=== PATIENT | male | born 1955 | race Caucasian/White ===

== ENCOUNTER 2017-05-22 17:37 | Inpatient (IN) | payer BC ==
[~2017-05-22] VITALS: Ht 172.7 cm; Wt 105.9 kg
[~2017-05-22 17:37] MED LIST: ASPI-630 PO; LISI1SOL PO; VALS1TAB8 PO
--- NOTE | 2017-05-22 17:40 | ED.ADGEN ---
Past History Past Medical History: Hypertension, Other Past Surgical History: Other Smoking: Non-smoker Drug Use: None Adult General Chief Complaint Chief Complaint '" I ve been having some chest pain off and on... more since Sunday... but it was bothering me on the way home to night... it been there all day... the discomfort is a 5/10. 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 Some subjective component of chest wall pain on palpation of left upper chest. No history of trauma. Has had a previous stress test with no reported gross abnormalities. Patient does have a history of hypertension, gout, and Ig A nephropathy. Patient does not smoke anymore. Patient does not think he has sleep apnea, patient denies any trauma. Patient is compliant with his hypertension . Patient follows with primary care Dr. Reza and with Dr. Mercado for nephrology. No history of DVT, significant cough or upper respiratory complaints. Family history -father PA and multiple CABG at his age. Father was also a diabetic. . Pt. has been compliant with his HTN meds and daily ASA meds today. Review of Systems Review of Systems Constitutional: Denies fever or chills [] Eyes: Denies change in visual acuity, redness, or eye pain [] HENT: Denies nasal congestion or sore throat [] Respiratory: Denies cough or shortness of breath [] Cardiovascular: No additional information not addressed in HPI [] GI: Denies abdominal pain, nausea, vomiting, bloody stools or diarrhea [] : Denies dysuria or hematuria [] Musculoskeletal: Denies back pain or joint pain [] Integument: Denies rash or skin lesions [] Neurologic: Denies headache, focal weakness or sensory changes [] Endocrine: Denies polyuria or polydipsia [] All other systems were reviewed and found to be within normal limits, except as documented in this note. Family History Family History Noncontributory Current Medications Current Medications Current Medications Medications (Trade) Dose Ordered Sig/[place] Start Time Stop Time Status Last Admin Dose Admin Enoxaparin Sodium (Lovenox 100mg Syringe) 100 mg BID 05/22/17 21:00 Magnesium Sulfate 50 ml @ 25 mls/hr 1X ONCE 05/22/17 20:00 05/22/17 21:59 DC 05/22/17 20:23 25 MLS/HR Morphine Sulfate (Morphine 4mg Syringe) 2 mg PRN Q2HR PRN 05/22/17 20:15 05/23/17 20:14 Multivitamins/ Minerals 10 ml/ Folic Acid 1 mg/ Thiamine HCl 100 mg/Lactated Ringer's 1,011.1 ml @ 125 mls/ hr Q24H 05/22/17 21:00 05/22/17 22:46 125 MLS/HR Nitroglycerin (Nitro-Bid Oint) 1 inch TID 05/22/17 21:00 Ondansetron HCl (Zofran) 4 mg PRN Q4HRS PRN 05/22/17 20:15 05/23/17 20:14 Sodium Chloride 1,000 ml @ 1,000 mls/hr Q1H 05/22/17 17:48 05/22/17 18:47 DC 05/22/17 18:29 1,000 MLS/HR Allergies Allergies Allergies Coded Allergies Type Severity Reaction Last Updated Verified No Known Drug Allergies 06/28/16 No Physical Exam Physical Exam Constitutional: moderate distress, non-toxic appearance. [] HENT: Normocephalic, atraumatic, bilateral external ears normal, oropharynx moist, no oral exudates, nose normal. [] Eyes: PERRLA, EOMI, conjunctiva normal, no discharge. [] Neck: Normal range of motion, no tenderness, supple, no stridor. [] Cardiovascular:Heart rate regular rhythm, no murmur [] Lungs & Thorax: Bilateral breath sounds clear to auscultation [] Abdomen: Bowel sounds normal, soft, no tenderness, no masses, no pulsatile masses. [] Skin: Warm, dry, no erythema, no rash. [] Back: No tenderness, no CVA tenderness. [] Extremities: No tenderness, no cyanosis, no clubbing, ROM intact, no edema. [] No cording appreciated in legs Neurologic: Alert and oriented X 3, normal motor function, normal sensory function, no focal deficits noted. [] Psychologic: Affect anxious, judgement normal, mood normal. [] Current Patient Data Vital Signs Vital Signs Date Time Temp Pulse Resp B/P (MAP) Pulse Ox O2 Delivery O2 Flow Rate FiO2 05/22/17 20:15 98.1 74 16 133/88 (103) 98 05/22/17 19:15 Room Air Lab Results Laboratory Tests Test 05/22/17 18:07 05/22/17 18:36 White Blood Count 8.4 x10^3/uL (4.0-11.0) Red Blood Count 4.51 x10^6/uL (4.30-5.70) Hemoglobin 14.9 g/dL (13.0-17.5) Hematocrit 43.8 % (39.0-53.0) Mean Corpuscular Volume 97 fL (79-100) Mean Corpuscular Hemoglobin 33 pg (25-35) Mean Corpuscular Hemoglobin Concent 34 g/dL (31-37) Red Cell Distribution Width 14.4 % (11.5-14.5) Platelet Count 195 x10^3/uL (140-400) Neutrophils (%) (Auto) 59 % (31-73) Lymphocytes (%) (Auto) 27 % (24-48) Monocytes (%) (Auto) 10 % (0-9) H Eosinophils (%) (Auto) 3 % (0-3) Basophils (%) (Auto) 1 % (0-3) Neutrophils # (Auto) 4.9 x10^3uL (1.8-7.7) Lymphocytes # (Auto) 2.2 x10^3/uL (1.0-4.8) Monocytes # (Auto) 0.8 x10^3/uL (0.0-1.1) Eosinophils # (Auto) 0.3 x10^3/uL (0.0-0.7) Basophils # (Auto) 0.1 x10^3/uL (0.0-0.2) Prothrombin Time 9.8 SEC (9.4-11.4) Prothrombin Time INR 1.0 (0.9-1.1) PTT 25 SEC (23-33) D-Dimer (Barb) 0.44 mg/L (0.00-0.50) Sodium Level 141 mmol/L (136-145) Potassium Level 3.7 mmol/L (3.5-5.1) Chloride Level 104 mmol/L (98-107) Carbon Dioxide Level 27 mmol/L (21-32) Anion Gap 10 (6-14) Blood Urea Nitrogen 24 mg/dL (8-26) Creatinine 1.4 mg/dL (0.7-1.3) H Estimated GFR (Cockcroft-Gault) 51.9 Glucose Level 88 mg/dL (70-99) Uric Acid 5.8 mg/dL (3.5-7.2) Calcium Level 9.2 mg/dL (8.5-10.1) Magnesium Level 1.6 mg/dL (1.8-2.4) L Total Bilirubin 0.4 mg/dL (0.2-1.0) Direct Bilirubin 0.1 mg/dL (0.0-0.2) Aspartate Amino Transferase (AST) 32 U/L (15-37) Alanine Aminotransferase (ALT) 34 U/L (16-63) Alkaline Phosphatase 97 U/L (46-116) Creatine Kinase 93 U/L (39-308) Creatine Kinase MB (Mass) 0.7 ng/mL (0.0-3.6) Creatine Kinase MB Relative Index 0.8 % (0-4) Troponin I Quantitative < 0.017 ng/mL (0-0.055) NC-Mhf-K-Type Natriuretic Peptide 63 pg/mL (0-124) Total Protein 7.3 g/dL (6.4-8.2) Albumin 3.6 g/dL (3.4-5.0) Lipase 203 U/L (73-393) Urine Collection Type Unknown Urine Color Yellow Urine Clarity Clear Urine pH 5.5 Urine Specific [place] 1.025 Urine Protein >100 mg/dl (NEG-TRACE) Urine Glucose (UA) Neg mg/dL (NEG) Urine Ketones (Stick) Neg mg/dL (NEG) Urine Blood Neg (NEG) Urine Nitrite Neg (NEG) Urine Bilirubin Neg (NEG) Urine Urobilinogen Dipstick 0.2 mg/dL (0.2 mg/dL) Urine Leukocyte Esterase Neg (NEG) Urine RBC 0 /HPF (0-2) Urine WBC Rare /HPF (0-4) Urine Squamous Epithelial Cells Occ /LPF Urine Bacteria 0 /HPF (0-FEW) Urine Opiates Screen Neg (NEG) Urine Methadone Screen Neg (NEG) Urine Barbiturates Neg (NEG) Urine Phencyclidine Screen Neg (NEG) Urine Amphetamine/Methamphetamine Neg (NEG) Urine Benzodiazepines Screen Neg (NEG) Urine Cocaine Screen Neg (NEG) Urine Cannabinoids Screen Neg (NEG) Urine Ethyl Alcohol Neg (NEG) EKG EKG My interpretation EKG shows sinus rhythm at 79 bpm. There is some leftward axis and nonspecific anterior septal changes. But no findings acute STEMI of contralateral changes.[] Radiology/Procedures Radiology/Procedures My interpretation chest x-ray shows no acute cardiopulmonary findings. [] Course & Med Decision Making Course & Med Decision Making Pertinent Labs and Imaging studies reviewed. (See chart for details) Discussed presentation, testing and tx. plan with Dr. Mitchell, will admit serial trops. and Cardiology consult. Pt. still have some mild chest discomfort at time of admit. [] Final Impression Final Impression 1. Chest Pain 2. Gout 3. Hypertension[] 4. History of IgA nephropathy 5. Hypomagnesium Problems: Dragon Disclaimer Dragon Disclaimer This electronic medical record was generated, in whole or in part, using a voice recognition dictation system. ELVIRA MAY MD May 22, 2017 17:40
[2017-05-22] MEDS ORDERED: IV NORMAL SALINE 1,000ML 1,000 ML IV SCH (17:48)
[2017-05-22] MEDS ORDERED: NITROGLYCERIN OINT 1 GM PACKET. TP ONE (18:15)
[2017-05-22] MEDS ORDERED: ENOXAPARIN ** NOTE DOSE ** SYRINGE SQ ONE (18:15)
[2017-05-22 18:27] LABS: BASO # 0.1 x10^3/uL (0.0-0.2); BASO % 1 % (0-3); EOS # 0.3 x10^3/uL (0.0-0.7); EOS % 3 % (0-3); HEMATOCRIT 43.8 % (39.0-53.0); HEMOGLOBIN 14.9 g/dL (13.0-17.5); LYMPH # 2.2 x10^3/uL (1.0-4.8); LYMPH % 27 % (24-48); MEAN CORPUSCULAR HEMOGLOBIN 33 pg (25-35); MEAN CORPUSCULAR HGB CONC 34 g/dL (31-37); MEAN CORPUSCULAR VOLUME 97 fL (79-100); MONO # 0.8 x10^3/uL (0.0-1.1); MONO % 10 % (0-9); NEUT # 4.9 x10^3uL (1.8-7.7); NEUT % 59 % (31-73); PLATELET COUNT 195 x10^3/uL (140-400); RED BLOOD COUNT 4.51 x10^6/uL (4.30-5.70); RED CELL DISTRIBUTION WIDTH 14.4 % (11.5-14.5); WHITE BLOOD COUNT 8.4 x10^3/uL (4.0-11.0)
[2017-05-22 18:50] LABS: ALBUMIN 3.6 g/dL (3.4-5.0); CALCIUM 9.2 mg/dL (8.5-10.1); CREATININE 1.4 mg/dL (0.7-1.3); DIRECT BILIRUBIN 0.1 mg/dL (0.0-0.2); GFR 51.9; MAGNESIUM 1.6 mg/dL (1.8-2.4); POTASSIUM 3.7 mmol/L (3.5-5.1); TOTAL BILIRUBIN 0.4 mg/dL (0.2-1.0); TOTAL PROTEIN 7.3 g/dL (6.4-8.2); URIC ACID 5.8 mg/dL (3.5-7.2)
[2017-05-22 19:03] LABS: BARBITURATES NEG (NEG); BENZODIAZEPINES NEG (NEG); CANNABINOIDS NEG (NEG); COCAINE NEG (NEG); METHADONE NEG (NEG); OPIATES NEG (NEG); PHENCYCLIDINE NEG (NEG)
[2017-05-22 19:04] LABS: AMPHETAMINE/METHAMPHETAMINE NEG (NEG)
[2017-05-22 19:09] LABS: BILIRUBIN,URINE NEG (NEG); CLARITY,URINE CLEAR; COLOR,URINE YELLOW; GLUCOSE,URINE NEG (NEG); NITRITE,URINE NEG (NEG); RBC,URINE 0 /HPF (0-2); UROBILINOGEN,URINE 0.2 mg/dL (0.2 mg/dL); WBC,URINE RARE /HPF (0-4)
[2017-05-22 19:10] LABS: BACTERIA,URINE 0 /HPF (0-FEW); SQUAMOUS EPITHELIAL CELL,UR OCC /LPF
[2017-05-22] MEDS ORDERED: MAGNESIUM SULFATE 2GM 50 ML IV ONE (20:00)
[2017-05-22] MEDS ORDERED: ONDANSETRON PF 4 MG/2 ML VIAL. IV PRN (20:15)
[2017-05-22] MEDS ORDERED: MORPHINE SULFATE 4 MG/ML DISP.SYRIN. IV PRN (20:15)
[2017-05-22] MEDS: NITROGLYCERIN OINT 1 GM PACKET. TP SCH (20:26)
[2017-05-22] MEDS: ENOXAPARIN ** NOTE DOSE ** SYRINGE SQ SCH (20:26)
[2017-05-22 22:26] VITALS: BP 120/72
[2017-05-22] MEDS: MVI, ADULT NO.4 WITH VIT K 10 ML, FOLIC ACID SYRINGE for ER 1 MG, THIAMINE 100 MG in IV... IV SCH ×4 (22:46)
[2017-05-22] MEDS ORDERED: LISI-334 PO (23:38)
[2017-05-22] MEDS ORDERED: ALLO300T PO (23:38)
--- NOTE | 2017-05-22 23:47 | EKG ---
[address] [address] Test Date: 2017-05-22 Test Time: 18:11:15 Pat Name: FLACA GARZA Department: Room: 122 A Gender: M Tawer: FABIO : 1955 Requested By: ELVIRA MAY Order Number: [id number] Reading MD: Soham Zimmerman MD Measurements Intervals [place] Rate: 79 P: -28 WA: 188 QRS: -26 QRSD: 84 T: 17 QT: 368 QTc: 423 Interpretive Statements SINUS RHYTHM CONSISTENT WITH INFERIOR INFARCT PATTERN Electronically Signed On 05-24-2017 9:56:58 [employer] by Soham Zimmerman MD
[2017-05-23] MEDS ORDERED: HYDR12.58 PO (00:15)
[2017-05-23] MEDS ORDERED: ACETAMINOPHEN 325 MG TABLET PO PRN (02:15)
[2017-05-23 06:35] VITALS: BP 141/90
[2017-05-23 07:19] LABS: BASO # 0.1 x10^3/uL (0.0-0.2); BASO % 1 % (0-3); EOS # 0.3 x10^3/uL (0.0-0.7); EOS % 3 % (0-3); HEMATOCRIT 38.2 % (39.0-53.0); LYMPH # 1.6 x10^3/uL (1.0-4.8); LYMPH % 20 % (24-48); MEAN CORPUSCULAR HEMOGLOBIN 33 pg (25-35); MEAN CORPUSCULAR HGB CONC 34 g/dL (31-37); MEAN CORPUSCULAR VOLUME 97 fL (79-100); MONO # 0.7 x10^3/uL (0.0-1.1); MONO % 9 % (0-9); NEUT # 5.4 x10^3uL (1.8-7.7); NEUT % 67 % (31-73); PLATELET COUNT 164 x10^3/uL (140-400); RED BLOOD COUNT 3.96 x10^6/uL (4.30-5.70); RED CELL DISTRIBUTION WIDTH 14.7 % (11.5-14.5)
[2017-05-23 07:36] LABS: CALCIUM 8.3 mg/dL (8.5-10.1); CREATININE 1.2 mg/dL (0.7-1.3); POTASSIUM 4.2 mmol/L (3.5-5.1)
--- NOTE | 2017-05-23 08:22 | RAD ---
Chest, 2 views, 05/22/2017: History: Right upper chest pain The heart size and pulmonary vascularity are normal. There is mild tortuosity of the thoracic aorta. There are granulomatous calcifications in the right chest. No acute infiltrate is seen. There is no evidence of pleural fluid or pneumothorax. IMPRESSION: No acute cardiopulmonary abnormality is detected.
[2017-05-23] MEDS ORDERED: ALLOPURINOL 300 MG TABLET. PO SCH (09:00)
[2017-05-23] MEDS ORDERED: NON FORMULARY ITEM (Valsartan/Hydrochlorothiazide (Diovan Hct 160-12.5 Mg Tab) 1 TAB) PO SCH (09:00)
[2017-05-23] MEDS: NITROGLYCERIN OINT 1 GM PACKET. TP SCH (09:00)
[2017-05-23] MEDS ORDERED: hydroCHLOROthiazide 12.5 MG CAPSULE PO SCH ×2 (09:00)
[2017-05-23] MEDS ORDERED: LISINOPRIL 20 MG TABLET PO SCH (09:00)
[2017-05-23] MEDS ORDERED: ASPIRIN 81 MG TAB.CHEW PO SCH (09:00)
[2017-05-23] MEDS ORDERED: ASPIRIN 325 MG TABLET PO SCH (09:00)
[2017-05-23] MEDS ORDERED: LOSARTAN 50 MG TABLET. PO SCH (09:00)
[2017-05-23] MEDS: ENOXAPARIN ** NOTE DOSE ** SYRINGE SQ SCH ×2 (09:29→20:32)
[2017-05-23 11:13] VITALS: BP_SYST 117; BP_SYST 169; BP_DIAS 73; BP_DIAS 91
[2017-05-23 15:28] VITALS: BP 128/68
[2017-05-23 19:43] VITALS: BP 136/86
[2017-05-23] MEDS: MVI, ADULT NO.4 WITH VIT K 10 ML, FOLIC ACID SYRINGE for ER 1 MG, THIAMINE 100 MG in IV... IV SCH ×4 (20:27)
--- NOTE | 2017-05-23 21:35 | HP ---
ADMIT DATE: 05/23/2017 HISTORY OF PRESENT ILLNESS: The patient is a 61-year-old male patient, who basically came to the Emergency Room while driving home and he started complaining of left-sided chest pain associated with some shortness of breath, but no nausea, no vomiting, no diaphoresis. His pain was rated at 5/10 in severity, relieved by nitro paste and the patient was admitted for further evaluation and to rule out myocardial infarction. PAST MEDICAL HISTORY: Significant for hypertension, IgA nephropathy, and gout. PAST SURGICAL HISTORY: Significant for colonoscopy. ALLERGIES: He has no known drug allergies. MEDICATIONS: He is currently on allopurinol 300 mg once a day, aspirin 81 mg once a day, hydrochlorothiazide 12.5 mg once a day, lisinopril 20 mg once a day, and valsartan/hydrochlorothiazide 160/12.5 once a day. FAMILY HISTORY: He has 1 younger sister and has problem with cholecystitis. His father because of complication of end-stage renal disease. He has coronary artery disease status post CABG x 2 and underwent nephrectomy. Mother is still alive at age of 79 and has hypertension, diabetes, and shingles. SOCIAL HISTORY: He is , has no children. He does not use drugs, does not smoke, drink alcohol, or recreational drugs. 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 REVIEW OF SYSTEMS: The patient denied any blurring of vision, cataract, glaucoma, or macular degeneration. Denied any earache, tinnitus, or sensorineural deafness. Denied any nosebleeds, stuffy nose, or postnasal drip. Denied any sore throat, sore tongue, toothache, hoarseness of voice, or difficulty swallowing. Denied any nausea, vomiting, diarrhea, or constipation. Denied any hematemesis, melena, or hematochezia. Denied any dysuria, frequency, or hematuria. Denied any chills, rigors, or fever. PHYSICAL EXAMINATION: GENERAL: On arrival to the Emergency Room, he looked well and was clearly in no apparent distress. VITAL SIGNS: His heart rate was 75, blood pressure 117/73, temperature was 97.8, respiratory rate was 18, and oxygen saturation was 97% on room air. HEAD, EYES, EAR, NOSE, AND THROAT: Showed normocephalic, atraumatic. NECK: Supple. HEART: Showed normal first and second heart sounds with no gallop, rub, or murmur. CHEST: Clear to auscultation. No crepitation or rhonchi. ABDOMEN: Distended, soft, nontender. No guarding or rigidity. No organomegaly. Hernial orifices intact. Bowel sounds normal. NEUROLOGIC: He was awake, alert, responding appropriately. Cranial nerves intact. EXTREMITIES: He moves extremities without difficulty, ambulates without assistive devices. LABORATORY DATA: Showed a white cell count of 8400, hemoglobin 14.9, hematocrit 44, MCV 97, and platelet count 295,000. His prothrombin time was 9.8, INR of 1, aPTT 25. D-dimer was 0.44. Serum sodium 141, potassium 3.7, chloride 104, bicarbonate 27, anion gap of 10, BUN 24, creatinine 1.4, estimated GFR was 52 mL per minute. His glucose was 88, uric acid was 5.8, calcium was 9.2, magnesium was 1.6. Total bilirubin, AST, ALT, alkaline phosphatase were normal. Total protein was 7.3, albumin was 3.6. Serum lipase ____. Urinalysis was unremarkable. Toxic screen was unremarkable. His chest x-ray showed that the heart size and pulmonary vascularity are normal. There is mild tortuosity of the thoracic aorta. There are granulomatous calcification in the right chest. No acute infiltrate is seen. There is no evidence of pleural fluid or pneumothorax. ASSESSMENT AND PLAN: The patient will be admitted. We will do 2 more sets of cardiac enzyme, fasting lipid profile, and arrange for Cardiology consult and echocardiogram and decide further management accordingly. ANITA MARC MD DR: ZEFERINO/marlo JOB#: [id number] / [id number]
[2017-05-23 22:57] VITALS: BP 138/54
--- NOTE | 2017-05-23 23:23 | PDOC ---
PROVIDER NOTE PROVIDER NOTE PROVIDER NOTE Cardiology consult note 61 y.o man presenting with increasing fatigue and intermittent chest pain with activity. He denies any associated syncope, palpitations, orthopnea or pND. Does have LE edema. No prior CV issues. Pmhx: HTN Sochx: No alcohol, tob or illicits. Famhx: +CAD NKDA Current CV meds reviewed. Physical exam; Cardiovascular: Normal heart sounds Respiratory: Normal breath sounds Abdomen: Soft, nontender, normal bowel sounds Mental Status: Alert, oriented X 3 Neurologic - Dx Testing Trop negative. EKG wnl Impression: 1. Atypical chest pain with accelerating symptoms in a middle aged man with significant risk factors. Plan: 1. Discussed r/b/a to stress versus cath, patient prefers cath. Will plan for it in a.m. and transfer patient for cath at [place] when bed available. Thanks for consultation. VELMA SERVIN MD May 23, 2017 23:23
[2017-05-24 05:51] VITALS: BP 143/54
[2017-05-24 10:00] VITALS: BP 142/90
== END 2017-05-24 10:00 | disposition short-term general hospital (02) | DRG 313 ==
LOC: ER 17:37 → 1 SOUTH 21:04
PROVIDERS: ADMIT Internal Medicine; ATTEND Internal Medicine
DX: R07.89 Other chest pain (principal); E83.42 Hypomagnesemia; I10 Essential (primary) hypertension; M10.9 Gout, unspecified; Z82.49 Family history of ischemic heart disease and other diseases of the circulatory system; Z83.3 Family history of diabetes mellitus; Z87.891 Personal history of nicotine dependence
CPT/HCPCS: 36415; 71046; 80048; 80061; 80076; 80307; 81001; 82553; 83690; 83735; 83880; 84443; 84484; 84550; 85025; 85379; 85610; 85730; 93005; 96361; 96365; 96372; G0238; J1650; J3475; J7120; 99285-25; G0479; J7030

== ENCOUNTER 2017-12-29 11:31 | Emergency (ER) | payer BC, OTHER ==
[~2017-12-29] VITALS: Ht 167.6 cm; Wt 104.3 kg
[~2017-12-29 11:31] MED LIST changes: +ALLO300T PO; +HYDR12.58 PO; +LISI-334 PO
[2017-12-29 12:04] VITALS: BP 139/91
--- NOTE | 2017-12-29 12:14 | PHYS DOC ---
Past History Past Medical History: Hypertension, Other Past Surgical History: Other Smoking: Non-smoker Alcohol Use: Occasionally Drug Use: None Adult General Chief Complaint Chief Complaint: KNEE INJURY HPI HPI 62-year-old male presents via EMS with left knee pain. The patient was climbing over a fence at home alone when he stepped onto a table for support, the table gave way and fell over sideways. The patient's leg went down in his foot got wedged and a trellis. His leg twisted and he heard a pop in the knee. He then fell to the ground. He denies any other injuries but continues to have left knee pain. Patient has been unable to bear weight due to pain. He denies any previous injuries to this knee. He is never had surgery on this knee. He has pain with flexion greater than 30. He denies fever or chills. He was not knocked unconscious when he fell. Review of Systems Review of Systems Constitutional: Denies fever or chills [] Eyes: Denies change in visual acuity, redness, or eye pain [] HENT: Denies nasal congestion or sore throat [] Respiratory: Denies cough or shortness of breath [] Cardiovascular: No additional information not addressed in HPI [] GI: Denies abdominal pain, nausea, vomiting, bloody stools or diarrhea [] : Denies dysuria or hematuria [] Musculoskeletal: Left lateral knee pain[] Integument: Denies rash or skin lesions [] Neurologic: Denies headache, focal weakness or sensory changes [] Endocrine: Denies polyuria or polydipsia [] All other systems were reviewed and found to be within normal limits, except as documented in this note. Allergies Allergies Allergies Coded Allergies Type Severity Reaction Last Updated Verified No Known Drug Allergies 06/28/16 No Physical Exam Physical Exam Constitutional: Well developed, well nourished, no acute distress, non-toxic appearance. [] HENT: Normocephalic, atraumatic, bilateral external ears normal, oropharynx moist, no oral exudates, nose normal. [] Eyes: PERRLA, EOMI, conjunctiva normal, no discharge. [] Neck: Normal range of motion, no tenderness, supple, no stridor. [] Cardiovascular:Heart rate regular rhythm, no murmur [] Lungs & Thorax: Bilateral breath sounds clear to auscultation [] Abdomen: Bowel sounds normal, soft, no tenderness, no masses, no pulsatile masses. [] Skin: Warm, dry, no erythema, no rash. [] Back: No tenderness, no CVA tenderness. [] Extremities: Abrasion to the left lateral lower leg, left knee tenderness, worse on the lateral aspect. Ligaments intact with good endpoint bilateral. Unable to test gait due to pain, minimal swelling.[] Neurologic: Alert and oriented X 3, normal motor function, normal sensory function, no focal deficits noted. [] Psychologic: Affect normal, judgement normal, mood normal. [] EKG EKG [] Radiology/Procedures Radiology/Procedures [] Impressions: EXAM: Left knee, 4 views. HISTORY: Fall. COMPARISON: None. FINDINGS: Frontal, lateral, oblique and sunrise views of the left knee are obtained. There is no fracture, dislocation or subluxation. There is a small enthesophyte along the superior patella. There is no joint effusion. IMPRESSION: No acute osseous finding. Electronically signed by: Paulina Xavier MD (12/29/2017 12:35 PM) [facility] DICTATED AND SIGNED BY: PAULINA XAVIER MD DATE: 12/29/17 0914 CC: BETTINA GUAJARDO DO; GAGAN BRENNAN MD Course & Med Decision Making Course & Med Decision Making Pertinent Labs and Imaging studies reviewed. (See chart for details.) The patient's knee x-rays negative for fracture. He likely strained his lateral collateral ligament. It is possible that he has meniscal injury. I have advised that he follow-up with orthopedics if he does not improve rapidly minutes couple days. Stable for discharge at this time. Dragon Disclaimer Dragon Disclaimer This electronic medical record was generated, in whole or in part, using a voice recognition dictation system. Departure Departure: Referrals: GAGAN BRENNAN MD (PCP) BETTINA GUAJARDO DO Dec 29, 2017 12:14
[2017-12-29] MEDS ORDERED: HYDROcodone/APAP 5/325MG 1 TAB TABLET ONE ×2 (12:17)
[2017-12-29] MEDS ORDERED: HYDROcodone/APAP 5/325MG 1 TAB TABLET PO ONE (12:30)
--- NOTE | 2017-12-29 12:38 | RAD ---
EXAM: Left knee, 4 views. HISTORY: Fall. COMPARISON: None. FINDINGS: Frontal, lateral, oblique and sunrise views of the left knee are obtained. There is no fracture, dislocation or subluxation. There is a small enthesophyte along the superior patella. There is no joint effusion. IMPRESSION: No acute osseous finding. Electronically signed by: Paulina Xavier MD (12/29/2017 12:35 PM) [facility]
[2017-12-29] MEDS ORDERED: HYDR-971 PO (13:57)
== END 2017-12-29 14:14 | disposition home or self-care (01) ==
LOC: ER 11:31
DX: S80.812A Abrasion, left lower leg, initial encounter (principal); M25.562 Pain in left knee; I10 Essential (primary) hypertension; W17.89XA Other fall from one level to another, initial encounter; Y93.89 Activity, other specified; Y92.89 Other specified places as the place of occurrence of the external cause; Y99.8 Other external cause status
CPT/HCPCS: 29505; 73564; 99284

== ENCOUNTER → 2018-01-16 | Outpatient (CLI) | payer BC, OTHER ==
[2017-12-29 12:04] VITALS: BP 139/91
[~2018-01-16] MED LIST changes: +HYDR-971 PO
--- NOTE | 2018-01-16 15:46 | RAD ---
Left knee, 3 views, 01/16/2018: HISTORY: Knee pain, injury No fracture or dislocation is identified. There is only slight posterior patellar spurring. No large joint effusion is seen. IMPRESSION: No acute bony abnormality is detected. Electronically signed by: David Wang MD (01/16/2018 3:43 PM) [facility]
== END | disposition home or self-care (01) ==
LOC: RAD 14:15
PROVIDERS: ATTEND Orthopaedic Surgery Sports Medicine
DX: M25.562 Pain in left knee (principal)
CPT/HCPCS: 73562

== ENCOUNTER → 2018-07-04 | Outpatient (CLI) | payer BC, OTHER ==
[~2018-07-04] MED LIST changes: +HYDR-3165 PO; -HYDR-971 PO
--- NOTE | 2018-07-04 09:11 | RAD ---
ABDOMEN LTD History: Right upper quadrant pain for a couple of months intermittently Comparison: None. Findings: Multiple sonographic images of the abdomen are submitted. Pancreas is not well-visualized due to bowel gas, no abnormality of the limited visualized head. No free fluid is demonstrated. Inferior vena cava is not well visualized due to bowel gas. Common bile duct is within normal limits at 0.5 cm. Gallbladder is present without demonstrable intraluminal abnormality, wall thickening, pericholecystic fluid. Right kidney measured 10.4 x 5.2 x 5.3 cm, no hydronephrosis. There is a hypoechoic lesion of the superior right kidney 1.5 x 1.2 x 1 cm in size, likely cyst. There is mild coarsening of the hepatic echotexture. No focal hepatic lesion is demonstrated by ultrasound, previously demonstrated small hypodense foci as seen on 2017 CT exam not well visualized by ultrasound. Right lobe of the liver measured 14 cm longitudinal. Impression: 1. Exam is limited due to bowel gas with poor visualization of the pancreas and inferior vena cava. There is no abnormality of the gallbladder, no biliary ductal dilatation. There is possible mild coarsening of the echotexture of liver which could be due to steatosis. Electronically signed by: Benjamin Jay MD (07/04/2018 9:08 AM) [id number]
== END | disposition home or self-care (01) ==
LOC: US 08:00
PROVIDERS: ATTEND Family Medicine
DX: R10.11 Right upper quadrant pain (principal)
CPT/HCPCS: 76705

== ENCOUNTER 2019-09-09 13:58 | Emergency (ER) | payer OTHER ==
[~2019-09-09] VITALS: Ht 167.6 cm; Wt 102.3 kg
[2019-09-09 14:14] VITALS: BP 174/84
[2019-09-09 14:38] LABS: BASO # 0.1 x10^3/uL (0.0-0.2); BASO % 1 % (0-3); EOS # 0.3 x10^3/uL (0.0-0.7); EOS % 4 % (0-3); HEMATOCRIT 47.2 % (39.0-53.0); HEMOGLOBIN 15.9 g/dL (13.0-17.5); LYMPH # 2.3 x10^3/uL (1.0-4.8); LYMPH % 27 % (24-48); MEAN CORPUSCULAR HEMOGLOBIN 33 pg (25-35); MEAN CORPUSCULAR HGB CONC 34 g/dL (31-37); MEAN CORPUSCULAR VOLUME 98 fL (79-100); MONO # 0.8 x10^3/uL (0.0-1.1); MONO % 10 % (0-9); NEUT % 59 % (31-73); PLATELET COUNT 209 x10^3/uL (140-400); RED BLOOD COUNT 4.81 x10^6/uL (4.30-5.70); RED CELL DISTRIBUTION WIDTH 13.8 % (11.5-14.5); WHITE BLOOD COUNT 8.4 x10^3/uL (4.0-11.0)
[2019-09-09] MEDS: ASPIRIN CHEWABLE 81 MG TABLET. PO ONE (14:38)
[2019-09-09 14:43] LABS: CALCIUM 9.2 mg/dL (8.5-10.1); CREATININE 1.4 mg/dL (0.7-1.3); GFR 51.5; POTASSIUM 4.2 mmol/L (3.5-5.1)
--- NOTE | 2019-09-09 14:50 | PHYS DOC ---
Past History Past Medical History: Hypertension Past Surgical History: Other Smoking: Non-smoker Alcohol Use: Rarely Drug Use: None General Adult EDM: Chief Complaint: CHEST PAIN HPI: HPI: 63-year-old male presents with chest pain. He has been having intermittent chest tightness on the left side of his chest for some time, but yesterday and today it is been more persistent. The episodes are frequent and it has been lasting longer. He decided to come in today because this morning the episodes got up to a 7 out of 10. It is currently 2 out of 10. There is been some radiation to his left arm. He has had a cardiac catheterization about 2 years ago that was reported to be negative. No further cardiac history. He does have cardiac problems in his family history. Denies cough, shortness of breath, fever, chills, diaphoresis. Review of Systems: Review of Systems: Constitutional: Denies fever or chills Eyes: Denies change in visual acuity HENT: Denies nasal congestion or sore throat Respiratory: Denies cough or shortness of breath Cardiovascular: Chest pain GI: Denies abdominal pain, nausea, vomiting, bloody stools or diarrhea : Denies dysuria Musculoskeletal: Denies back pain or joint pain Integument: Denies rash Neurologic: Denies headache, focal weakness or sensory changes Endocrine: Denies polyuria or polydipsia Lymphatic: Denies swollen glands Psychiatric: Denies depression or anxiety Heart Score: HEART Score for Chest Pain: HEART Score for Chest Pain Response (Comments) Value History Slighlty/Non-Suspicious 0 ECG Normal 0 Age >45 - < 65 1 Risk Factors 1 or 2 Risk Factors 1 Troponin < Normal Limit 0 Total 2 Risk Factors: Risk Factors: DM, Current or recent (<one month) smoker, HTN, HLP, family history of CAD, obesity. Risk Scores: Score 0 - 3: 2.5% MACE over next 6 weeks - Discharge Home Score 4 - 6: 20.3% MACE over next 6 weeks - Admit for Clinical Observation Score 7 - 10: 72.7% MACE over next 6 weeks - Early Invasive Strategies Current Medications: Current Meds: Current Medications Medications (Trade) Dose Ordered Sig/[place] Start Time Stop Time Status Last Admin Dose Admin Aspirin (Aspirin Chewable) 324 mg 1X ONCE 09/09/19 14:45 09/09/19 14:46 DC 09/09/19 14:38 324 MG Allergies: Allergies: Allergies Coded Allergies Type Severity Reaction Last Updated Verified No Known Drug Allergies 06/28/16 No Physical Exam: PE: Constitutional: Well developed, obese, well nourished, no acute distress, non- toxic appearance. [] HENT: Normocephalic, atraumatic, bilateral external ears normal, oropharynx moist, no oral exudates, nose normal. [] Eyes: PERRLA, EOMI, conjunctiva normal, no discharge. [] Neck: Normal range of motion, no tenderness, supple, no stridor. [] Cardiovascular: Heart rate regular rhythm, no murmur [] Lungs & Thorax: Bilateral breath sounds clear to auscultation [] Abdomen: Bowel sounds normal, soft, no tenderness, no masses, no pulsatile masses. [] Skin: Warm, dry, no erythema, no rash. [] Back: No tenderness, no CVA tenderness. [] Extremities: No tenderness, no cyanosis, no clubbing, ROM intact, no edema. [] Neurologic: Alert and oriented X 3, normal motor function, normal sensory function, no focal deficits noted. [] Psychologic: Affect normal, judgement normal, mood normal. [] Current Patient Data: Labs: Laboratory Tests Test 09/09/19 14:19 White Blood Count 8.4 x10^3/uL (4.0-11.0) Red Blood Count 4.81 x10^6/uL (4.30-5.70) Hemoglobin 15.9 g/dL (13.0-17.5) Hematocrit 47.2 % (39.0-53.0) Mean Corpuscular Volume 98 fL (79-100) Mean Corpuscular Hemoglobin 33 pg (25-35) Mean Corpuscular Hemoglobin Concent 34 g/dL (31-37) Red Cell Distribution Width 13.8 % (11.5-14.5) Platelet Count 209 x10^3/uL (140-400) Neutrophils (%) (Auto) 59 % (31-73) Lymphocytes (%) (Auto) 27 % (24-48) Monocytes (%) (Auto) 10 % (0-9) H Eosinophils (%) (Auto) 4 % (0-3) H Basophils (%) (Auto) 1 % (0-3) Neutrophils # (Auto) 5.0 x10^3uL (1.8-7.7) Lymphocytes # (Auto) 2.3 x10^3/uL (1.0-4.8) Monocytes # (Auto) 0.8 x10^3/uL (0.0-1.1) Eosinophils # (Auto) 0.3 x10^3/uL (0.0-0.7) Basophils # (Auto) 0.1 x10^3/uL (0.0-0.2) Sodium Level 140 mmol/L (136-145) Potassium Level 4.2 mmol/L (3.5-5.1) Chloride Level 102 mmol/L (98-107) Carbon Dioxide Level 29 mmol/L (21-32) Anion Gap 9 (6-14) Blood Urea Nitrogen 32 mg/dL (8-26) H Creatinine 1.4 mg/dL (0.7-1.3) H Estimated GFR (Cockcroft-Gault) 51.5 BUN/Creatinine Ratio 23 (6-20) H Glucose Level 120 mg/dL (70-99) H Calcium Level 9.2 mg/dL (8.5-10.1) Total Bilirubin Pending Aspartate Amino Transferase (AST) Pending Alanine Aminotransferase (ALT) Pending Alkaline Phosphatase Pending HJ-Uvd-K-Type Natriuretic Peptide Pending Total Protein Pending Albumin Pending Albumin/Globulin Ratio Pending Vital Signs: Vital Signs Date Time Temp Pulse Resp B/P (MAP) Pulse Ox O2 Delivery O2 Flow Rate FiO2 09/09/19 14:14 98.1 70 18 174/84 (114) 98 Room Air EKG: EKG: [] Radiology/Procedures: Radiology/Procedures: [] Impressions: EXAM: Chest, single view. HISTORY: Chest pain. COMPARISON: 05/22/2017 FINDINGS: A frontal view of the chest is obtained. There is no infiltrate, pleural effusion or pneumothorax. The heart is normal in size. There is a calcified granuloma within the right mid thorax. IMPRESSION: No acute pulmonary finding. Electronically signed by: Paulina Xavier MD (09/09/2019 2:46 PM) [id number] DICTATED AND SIGNED BY: PAULINA XAVIER MD DATE: 09/09/19 1443 CC: BETTINA GUAJARDO DO; GAGAN BRENNAN MD ~ Course & Med Decision Making: Course & Med Decision Making Pertinent Labs and Imaging studies reviewed. (See chart for details) The patient's labs are unremarkable. His EKG is unremarkable. His troponin is negative. His chest x-ray is negative for acute findings. Not sure what the source of the patient's discomfort is. I have advised the patient follow-up with his primary physician and consider a stress test. He is stable for discharge at this time. [] Dragon Disclaimer: Dragon Disclaimer: This electronic medical record was generated, in whole or in part, using a voice recognition dictation system. Departure Departure: Impression: Primary Impression: Chest pain Qualified Codes: R07.9 - Chest pain, unspecified Disposition: HOME, SELF-CARE Condition: STABLE Referrals: GAGAN BRENNAN MD (PCP) Patient Instructions: Chest Pain (Nonspecific), Lmmt-[id number] BETTINA GUAJARDO DO September 09, 2019 14:50
[2019-09-09 14:55] LABS: ALBUMIN 3.7 g/dL (3.4-5.0); ALBUMIN/GLOBULIN RATIO 1.2 (1.0-1.7); TOTAL BILIRUBIN 0.3 mg/dL (0.2-1.0); TOTAL PROTEIN 6.9 g/dL (6.4-8.2)
--- NOTE | 2019-09-09 15:52 | EKG ---
[address] [address] Test Date: 2019-09-09 Test Time: 14:16:43 Pat Name: FLACA GARZA Department: Room: Gender: M Technician Test Systems: : 1955 Requested By: BETTINA GUAJARDO Order Number: [id number] Reading MD: Soham Zimmerman MD Measurements Intervals [place] Rate: 69 P: 180 NH: 164 QRS: -25 QRSD: 86 T: 10 QT: 384 QTc: 413 Interpretive Statements SINUS RHYTHM Electronically Signed On 09-11-2019 11:30:42 CDT by Soham Zimmerman MD
== END 2019-09-09 16:07 | disposition home or self-care (01) ==
LOC: ER 13:58
DX: R07.89 Other chest pain (principal); I10 Essential (primary) hypertension
CPT/HCPCS: 36415; 71045; 80053; 83880; 84484; 85025; 93005; 99285

== ENCOUNTER → 2019-10-06 | Outpatient (CLI) | payer OTHER ==
[2019-09-09 14:14] VITALS: BP 174/84
[2019-10-06 15:14] LABS: BASO # 0.1 x10^3/uL (0.0-0.2); BASO % 1 % (0-3); EOS # 0.3 x10^3/uL (0.0-0.7); EOS % 4 % (0-3); HEMATOCRIT 42.4 % (39.0-53.0); HEMOGLOBIN 14.4 g/dL (13.0-17.5); LYMPH # 2.2 x10^3/uL (1.0-4.8); LYMPH % 30 % (24-48); MEAN CORPUSCULAR HEMOGLOBIN 33 pg (25-35); MEAN CORPUSCULAR HGB CONC 34 g/dL (31-37); MEAN CORPUSCULAR VOLUME 98 fL (79-100); MONO # 0.7 x10^3/uL (0.0-1.1); MONO % 9 % (0-9); NEUT # 4.1 x10^3uL (1.8-7.7); NEUT % 56 % (31-73); PLATELET COUNT 206 x10^3/uL (140-400); RED BLOOD COUNT 4.34 x10^6/uL (4.30-5.70); RED CELL DISTRIBUTION WIDTH 13.3 % (11.5-14.5); WHITE BLOOD COUNT 7.2 x10^3/uL (4.0-11.0)
[2019-10-06 15:27] LABS: ALBUMIN 3.6 g/dL (3.4-5.0); CALCIUM 8.8 mg/dL (8.5-10.1); CREATININE 1.3 mg/dL (0.7-1.3); GFR 56.1; PHOSPHORUS 2.5 mg/dL (2.6-4.7)
[2019-10-07 08:08] LABS: CALCIUM PTH 9.4 mg/dL (8.6-10.2); CREATININE PTH 1.23 mg/dL (0.76-1.27); PTH INTACT 56 pg/mL (15-65)
== END ==
LOC: LAB 14:38
PROVIDERS: ATTEND Internal Medicine Nephrology
DX: N02.8 Recurrent and persistent hematuria with other morphologic changes (principal); N18.3 Chronic kidney disease, stage 3 (moderate); Z68.31 Body mass index [BMI] 31.0-31.9, adult
CPT/HCPCS: 36415; 80069; 83970; 85025

== ENCOUNTER → 2020-06-29 | Outpatient (CLI) | payer OTHER ==
[~2020-06-29] MED LIST changes: -LISI-334 PO; +LISI20TA18 PO
--- NOTE | 2020-06-29 13:10 | RAD ---
INDICATION: Reason: BLE PAIN / Spl. Instructions: / History: COMPARISON: None. TECHNIQUE: Grayscale, color and doppler ultrasound images were obtained of the bilateral lower extrem ity venous vasculature. RIGHT: No thrombus identified in the common femoral vein, femoral vein, popliteal vein or visualized calf ve ins. LEFT: No thrombus identified in the common femoral vein, femoral vein, popliteal vein or visualized calf ve ins. Slow flow left popliteal vein. IMPRESSION: * No thrombus identified in deep venous system of bilateral lower extremities. Electronically signed by: Hever Sotelo MD (06/29/2020 1:08 PM) [id number]
== END ==
LOC: US 09:23
PROVIDERS: ATTEND Family Medicine
DX: M79.604 Pain in right leg (principal); M79.605 Pain in left leg
CPT/HCPCS: 93970

== ENCOUNTER → 2021-02-14 | Outpatient (CLI) | payer OTHER ==
[2021-02-14 11:22] LABS: BASO # 0.1 x10^3/uL (0.0-0.2); BASO % 1 % (0-3); EOS # 0.5 x10^3/uL (0.0-0.7); EOS % 6 % (0-3); HEMATOCRIT 44.4 % (39.0-53.0); HEMOGLOBIN 15.1 g/dL (13.0-17.5); LYMPH # 2.3 x10^3/uL (1.0-4.8); LYMPH % 28 % (24-48); MEAN CORPUSCULAR HEMOGLOBIN 33 pg (25-35); MEAN CORPUSCULAR HGB CONC 34 g/dL (31-37); MEAN CORPUSCULAR VOLUME 97 fL (79-100); MONO # 0.7 x10^3/uL (0.0-1.1); MONO % 9 % (0-9); NEUT # 4.5 x10^3uL (1.8-7.7); NEUT % 56 % (31-73); PLATELET COUNT 221 x10^3/uL (140-400); RED BLOOD COUNT 4.59 x10^6/uL (4.30-5.70); RED CELL DISTRIBUTION WIDTH 14.4 % (11.5-14.5); WHITE BLOOD COUNT 8.1 x10^3/uL (4.0-11.0)
[2021-02-14 12:00] LABS: ALBUMIN 3.5 g/dL (3.4-5.0); CALCIUM 9.1 mg/dL (8.5-10.1); CREATININE 1.2 mg/dL (0.7-1.3); GFR 61.1; PHOSPHORUS 2.9 mg/dL (2.6-4.7); POTASSIUM 3.8 mmol/L (3.5-5.1)
[2021-02-14 21:06] LABS: UR PROTEIN 50.8 mg/dL (Not Estab.)
[2021-02-15 13:10] LABS: CALCIUM PTH 9.3 mg/dL (8.6-10.2); CREATININE PTH 1.24 mg/dL (0.76-1.27); PTH INTACT 54 pg/mL (15-65)
== END ==
LOC: LAB 02-11 09:52
PROVIDERS: ATTEND Internal Medicine Nephrology
DX: I12.9 Hypertensive chronic kidney disease with stage 1 through stage 4 chronic kidney disease, or unspecified chronic kidney disease (principal); N18.31 Chronic kidney disease, stage 3a; Z68.34 Body mass index [BMI] 34.0-34.9, adult
CPT/HCPCS: 36415; 80069; 83970; 84156; 85025

== ENCOUNTER → 2021-03-07 | Outpatient (CLI) | payer OTHER ==
--- NOTE | 2021-03-07 15:50 | RAD ---
EXAM: US RENAL BILAT 03/07/2021 1:00 PM INDICATION: Right flank pain. COMPARISON: None TECHNIQUE: Grayscale, and color Doppler ultrasound of the kidneys and bladder. FINDINGS: The right kidney measures 9.5 x 5.2 x 5.1 cm. The left kidney measures 10.8 x 4.8 x 5.4 cm. Renal e chogenicity and cortical thickness are normal. No hydronephrosis. The bladder is not visualized as t he patient voided before the exam. Unable to evaluate for ureteral jets. IMPRESSION: No hydronephrosis. Electronically signed by: Zulay Franz MD (03/07/2021 3:47 PM) [id number]
== END ==
LOC: US 12:49
PROVIDERS: ATTEND Internal Medicine Nephrology
DX: R10.9 Unspecified abdominal pain (principal)
CPT/HCPCS: 76770

== ENCOUNTER 2021-05-11 14:58 | Emergency (ER) | payer OTHER ==
[~2021-05-11] VITALS: Ht 167.6 cm; Wt 105.5 kg
--- NOTE | 2021-05-11 16:56 | RAD ---
EXAMINATION: Abdominal complete acute radiograph. VIEWS: Single view of the chest and 3 views of the abdomen COMPARISON: 06/28/2016 INDICATION: 65 years, Male, abdominal bloating, Covid 19 pneumonia. FINDINGS: Nonobstructive bowel gas pattern. No gross pneumoperitoneum.No abnormal intra-abdominal calcification s. Normal cardiomediastinal silhouette. Multifocal bilateral pulmonary infiltrates. No pleural effusi on or pneumothorax. No acute process process. IMPRESSION: 1. Multifocal bilateral pulmonary infiltrates, consistent with known Covid 19 pneumonia. 2. Nonobstructive bowel gas pattern. Electronically signed by: Sandy Roach MD (05/11/2021 4:54 PM) [facility]
[2021-05-11] MEDS ORDERED: FAMO-63 PO (17:09)
[2021-05-11] MEDS ORDERED: AZIT250T6 PO (17:09)
[2021-05-11] MEDS ORDERED: ONDA4TAB12 PO (17:09)
--- NOTE | 2021-05-11 17:14 | PHYS DOC ---
Past History Past Medical History: Hypertension Past Surgical History: No Surgical History Smoking: Non-smoker Alcohol Use: Rarely Drug Use: None General Adult EDM: Chief Complaint: ABDOMINAL PAIN HPI: HPI: 65-year-old male past medical history of hypertension and CKD (follows with Dr. Mercado, nephrology), presents to the ED with complaints of nausea, vomiting and loose watery diarrhea stating he tested positive for Covid on May 05. C/o weakness and his abdomen feels "more full" than normal. Also reports associated dry cough. asks if IV fluids will "give me more energy?" Is not vaccinated for Covid. Is tolerating food/drink currently. Review of Systems: Review of Systems: Constitutional: Denies fever or chills Eyes: Denies change in visual acuity HENT: Denies nasal congestion or sore throat Respiratory: Denies dyspnea or hemoptysis Cardiovascular: Denies chest pain or edema GI: Denies melena, hematochezia, hematemesis or constipation : Denies dysuria or hematuria Musculoskeletal: Denies back pain or joint pain Integument: Denies rash or diaphoresis Neurologic: Denies headache, focal weakness or sensory changes Endocrine: Denies polyuria or polydipsia Lymphatic: Denies swollen glands Psychiatric: Denies depression or anxiety Allergies: Allergies: Allergies Coded Allergies Type Severity Reaction Last Updated Verified No Known Drug Allergies 06/28/16 No Physical Exam: PE: Constitutional: Well developed, well nourished, no acute distress, non-toxic appearance. HENT: Normocephalic, atraumatic, dry mucous membranes Eyes: EOMI, conjunctiva normal, no discharge. Neck: Normal range of motion, supple, Cardiovascular: S1/2 present, regular rhythm Lungs & Thorax: Speaking in full sentences, bilateral equal chest rise, no tachypnea or increased work of breathing Abdomen: soft, no tenderness, no rigidity or guarding, no focal tenderness- reports diffuse "pressure," obese abdomen Skin: Warm, dry, no erythema, no rash. [] Extremities: No tenderness, no cyanosis, no lower extremity edema Neurologic: Alert and oriented X 3, normal motor function, normal sensory function, no focal deficits noted. [] Psychologic: Affect normal, judgement normal, mood normal. [] Current Patient Data: Vital Signs: Vital Signs Date Time Temp Pulse Resp B/P (MAP) Pulse Ox O2 Delivery O2 Flow Rate FiO2 05/11/21 16:08 98.6 78 16 113/61 (78) 95 Room Air EKG: EKG: [] Radiology/Procedures: Radiology/Procedures: [] Heart Score: C/O Chest Pain: No Risk Factors: Risk Factors: DM, Current or recent (<one month) smoker, HTN, HLP, family history of CAD, obesity. Risk Scores: Score 0 - 3: 2.5% MACE over next 6 weeks - Discharge Home Score 4 - 6: 20.3% MACE over next 6 weeks - Admit for Clinical Observation Score 7 - 10: 72.7% MACE over next 6 weeks - Early Invasive Strategies Course & Med Decision Making: Course & Med Decision Making Pertinent Labs and Imaging studies reviewed. (See chart for details) COVID-19 CRITERIA: The patient was evaluated during the global COVID-19 pandemic, and that diagnosis was suspected/considered upon their initial presentation. Their evaluation, treatment and testing was consistent with current guidelines for patients who present with complaints or symptoms that may be related to COVID-19. Concern for abdominal pressure, nausea, vomiting and diarrhea in the setting of [id number] all viral process in nature. Patient is well-appearing and tolerates oral intake in the ED. Chest x-ray concerning for multifocal atypical pneumonia. Will prescribe azithromycin, Zofran ODT and Pepcid. Patient hemodynamically stable, nontoxic-appearing and protecting his airway. Will discharge home with strict ED return precautions were given for chest pain, shortness of breath, hemoptysis or neurologic deficits. Encouraged urgent outpatient follow-up with PMD for repeat evaluation. Life-threatening processes were considered but are low suspicion at this time, given history, physical exam and ED workup. Pt was educated on all prescription medications and adverse effects. All patient's questions were answered and pt was stable at time of dis charge. Life/limb-threatening differential includes but is not limited to, airway emergency or respiratory distress/ARDS or fatigue or head or neck swelling, toxidrome, sepsis/shock, angioedema, anaphylaxis, congestive heart failure, myocarditis, acute myocardial infarction, dysrhythmias, cardiomyopathy, venous thromboembolism, pulmonary emboli, acute necrotizing hemorrhagic encephalopathy ,cerebral venous thrombosis, meningitis, encephalitis or CVA. I have spoken with the patient and/or caregivers. I explained the patient's condition, diagnoses and treatment plan based on the information available to me at this time. I have answered the patient and/or caregiver's questions and addressed any concerns. The patient and/or caregivers have a good understanding of patient's diagnosis, condition and treatment plan as can be expected at this point. Vital signs have been stable. Patient's condition is stable and appropriate for discharge from the emergency department. Patient will pursue further outpatient evaluation with primary care physician or other designated or consulting physician as outlined in the discharge instructions. The patient and/or caregivers are agreeable to this plan of care and follow-up instructions have been explained in detail. The patient and/or caregivers have received these instructions in written form and have expressed an understanding of the discharge instructions. The patient and/or caregivers are aware that any significant change of condition or worsening of symptoms should prompt immediate return to this or the closest emergency department or call to [phone]. Te Disclaimer: Te Disclaimer: This electronic medical record was generated, in whole or in part, using a voice recognition dictation system. Departure Departure: Impression: Primary Impression: COVID-19 Additional Impression: Nausea vomiting and diarrhea Disposition: 01 HOME / SELF CARE / HOMELESS Condition: STABLE Referrals: GAGAN BRENNAN MD (PCP) Follow up with your pcp in 1-2 days or [facility] [phone] OR [facility] [phone] Patient Instructions: Diarrhea, Nausea and Vomiting Additional Instructions: Return to ED immediately if your oxygen level drops below 90% (purchase a pulse oximetry at a medical supply store), difficulties breathing including rapid breathing or increased work of breathing (skin sucking under ribs), chest pain or stroke-like symptoms (facial droop, speech changes, arm/leg weakness). EMERGENCY DEPARTMENT GENERAL DISCHARGE INSTRUCTIONS Thank you for coming to [facility] (ED) today and trusting us with you care. We trust that you had a positivie experience in our Emergency Department. If you wish to speak to the department management, you may call the director at [phone]. YOUR FOLLOW UP INSTRUCTIONS ARE FOLLOWS: 1. Do you have a private Doctor? If you do not have a private doctor, please ask for a resource list of physicians or clinics that may be able to assist you with follow up care. 2. The Emergency Physician has interpreted your x-rays. The X-Ray specialist will also review them. If there is a change in the findings, you will be notified in 48 hours when at all possible. 3. A lab test or culture has been done, your results will be reviewed and you will be notified if you need a change in treatment. ADDITIONAL INSTRUCTIONS AND INFORMATION: 1. Your care today has been supervised by a physician who is specially trained in emergency care. Many problems require more than one evaluation for a complete diagnosis and treatment. We recommend that you schedule your follow up appointment as recommended to ensure complete treatment of you illness or injury. If you are unable to obtain follow up care and continue to have a problem, or if your condition worsens, we recommend that you return to the ED. 2. We are not able to safely determine your condition over the phone nor are we able to give sound medical advice over the phone. For these safety reasons, if you call for medical advice we will ask you to come to the ED for further evaluation. 3. If you have any questions regarding these discharge instructions please call the ED at [phone]. SAFETY INFORMATION: In the interest of safety, wellness, and injury prevention; we encourage you to wear your sealbelt, if you smoke; quite smoking, and we encourage family to use a protective helmet for bicycling and other sporting events that present an increased risk for head injury. IF YOUR SYMPTOMS WORSEN OR NEW SYMPTOMS DEVELOP, OR YOU HAVE CONCERNS ABOUT YOUR CONDITION; OR IF YOUR CONDITION WORSENS WHILE YOU ARE WAITING FOR YOUR FOLLOW UP APPOINTMENT; EITHER CONTACT YOUR PRIMARY CARE DOCTOR, THE PHYSICIAN WHOSE NAME AND NUMBER YOU WERE GIVEN, OR RETURN TO THE ED IMMEDIATELY. Scripts Famotidine (PEPCID) 20 Mg Tablet 1 TAB PO BID for gerd for 14 Days, #28 TAB 0 Refills Prov: KRYSTAL REDDY DO 05/11/21 Azithromycin (AZITHROMYCIN TABLET) 250 Mg Tablet 1 PKG PO UD for lung nodule for 5 Days, #6 TAB 0 Refills 2 the first day followed by 1 for days 2-5 Prov: KRYSTAL REDDY DO 05/11/21 Ondansetron (ONDANSETRON ODT) 4 Mg Tab.rapdis 4 MG PO Q6HRS for Nausea/Vomiting, #15 TAB Prov: KRYSTAL REDDY DO 05/11/21 KRYSTAL REDDY DO May 11, 2021 17:14
[2021-05-11 17:19] VITALS: BP 120/70
== END 2021-05-11 17:20 | disposition home or self-care (01) ==
LOC: ER 14:58
DX: U07.1 COVID-19 (principal); R11.2 Nausea with vomiting, unspecified; R19.7 Diarrhea, unspecified; I12.9 Hypertensive chronic kidney disease with stage 1 through stage 4 chronic kidney disease, or unspecified chronic kidney disease; N18.9 Chronic kidney disease, unspecified
CPT/HCPCS: 74022; 99283

== ENCOUNTER 2021-10-02 08:53 | Emergency (ER) | payer OTHER ==
[~2021-10-02] VITALS: Ht 167.6 cm; Wt 105.5 kg
[~2021-10-02 08:53] MED LIST changes: +AZIT250T6 PO; +FAMO-63 PO; +ONDA4TAB12 PO
[2021-10-02] MEDS ORDERED: IV NORMAL SALINE 1,000ML 1,000 ML IV SCH (09:30)
[2021-10-02] MEDS ORDERED: ONDANSETRON PF 4 MG/2 ML VIAL. IVP ONE (09:30)
[2021-10-02] MEDS ORDERED: FAMOTIDINE 20 MG/2 ML VIAL IVP ONE (09:30)
[2021-10-02] MEDS ORDERED: LIDO:MAALOX 1:1 20 ML SINGLE DOSE. PO ONE (09:30)
[2021-10-02] MEDS ORDERED: DICYCLOMINE 20 MG/2 ML VIAL. IM ONE (09:30)
[2021-10-02 09:35] LABS: BASO # 0.1 x10^3/uL (0.0-0.2); BASO % 1 % (0-3); EOS # 0.9 x10^3/uL (0.0-0.7); EOS % 8 % (0-3); HEMATOCRIT 43.3 % (39.0-53.0); HEMOGLOBIN 14.7 g/dL (13.0-17.5); LYMPH # 2.1 x10^3/uL (1.0-4.8); LYMPH % 20 % (24-48); MEAN CORPUSCULAR HEMOGLOBIN 33 pg (25-35); MEAN CORPUSCULAR HGB CONC 34 g/dL (31-37); MEAN CORPUSCULAR VOLUME 96 fL (79-100); MONO # 0.9 x10^3/uL (0.0-1.1); MONO % 9 % (0-9); NEUT # 6.5 x10^3uL (1.8-7.7); NEUT % 62 % (31-73); PLATELET COUNT 212 x10^3/uL (140-400); RED BLOOD COUNT 4.51 x10^6/uL (4.30-5.70); RED CELL DISTRIBUTION WIDTH 13.9 % (11.5-14.5); WHITE BLOOD COUNT 10.5 x10^3/uL (4.0-11.0)
--- NOTE | 2021-10-02 09:39 | RAD ---
XR CHEST 1V 10/02/2021 9:21 AM INDICATION: Epigastric pain COMPARISON: 09/09/2019 TECHNIQUE: Portable frontal view of the chest is provided. FINDINGS: The cardiomediastinal silhouette is within normal limits. Lungs are clear. Calcified granuloma identi fied at the right lung base. There are no significant pleural effusions. There is no pulmonary vascular congestion. No pneumothora x. No suspicious osseous abnormality. IMPRESSION: There is no acute cardiopulmonary process. Electronically signed by: Yuli Kang MD (10/02/2021 9:36 AM) [id number]
[2021-10-02 09:44] LABS: CALCIUM 9.4 mg/dL (8.5-10.1); CREATININE 1.9 mg/dL (0.7-1.3); POTASSIUM 4.1 mmol/L (3.5-5.1)
--- NOTE | 2021-10-02 09:47 | PHYS DOC ---
Past History Past Medical History: Hypertension Past Surgical History: No Surgical History Smoking: Non-smoker Alcohol Use: Rarely Drug Use: None Adult General Chief Complaint Chief Complaint: ABDOMINAL PAIN HPI HPI Patient is a 65 year old male who presents with complaint of epigastric pain. The patient states his symptoms have been constant over the past 2 days. The patient notes history of recurrent upper abdominal pain. States that he is scheduled to have an EGD performed on October 12, [address] Putnam. States that 2 days ago he started having worsening upper abdominal pain which he describes as dull and gnawing. States that the pain waxes and wanes but has been constant throughout that time. He tried taking oral antacids which she states helped somewhat with the pain but notes it never went completely away. He denies worsening pain with exertion. Does not have any associated shortness of breath, vomiting, dizziness, fever, or diarrhea. Due to worsening symptoms he came to the emergency department for further evaluation. Denies any known personal c ardiac history. Review of Systems Review of Systems Constitutional: Denies fever or chills [] Eyes: Denies change in visual acuity, redness, or eye pain [] HENT: Denies nasal congestion or sore throat [] Respiratory: Denies cough or shortness of breath [] Cardiovascular: Denies chest pain or edema [] GI: Abdominal pain, denies nausea, vomiting, bloody stools or diarrhea [] : Denies dysuria or hematuria [] Musculoskeletal: Denies back pain or joint pain [] Integument: Denies rash or skin lesions [] Neurologic: Denies headache, focal weakness or sensory changes [] All other systems were reviewed and found to be within normal limits, except as documented in this note. Current Medications Current Medications Current Medications Medications (Trade) Dose Ordered Sig/Alexandrai Start Time Stop Time Status Last Admin Dose Admin Dicyclomine HCl (Bentyl) 20 mg 1X ONCE 10/02/21 09:30 10/02/21 09:31 DC 10/02/21 09:38 20 MG Famotidine (Pepcid Vial) 20 mg 1X ONCE 10/02/21 09:30 10/02/21 09:31 DC 10/02/21 09:37 20 MG Multi-Ingredient Mouthwash/Gargle (Gi Cocktail) 20 ml 1X ONCE 10/02/21 09:30 10/02/21 09:31 DC 10/02/21 09:35 20 ML Ondansetron HCl (Zofran) 4 mg 1X ONCE 10/02/21 09:30 10/02/21 09:31 DC 10/02/21 09:36 4 MG Sodium Chloride 1,000 ml @ 1,000 mls/hr Q1H 10/02/21 09:30 10/02/21 10:29 10/02/21 09:35 1,000 MLS/HR Allergies Allergies Allergies Coded Allergies Type Severity Reaction Last Updated Verified No Known Drug Allergies 06/28/16 No Physical Exam Physical Exam Constitutional: Well developed, well nourished, no acute distress, non-toxic appearance. [] HENT: Normocephalic, atraumatic, bilateral external ears normal, oropharynx moist, no oral exudates, nose normal. [] Eyes: PERRLA, EOMI, conjunctiva normal, no discharge. [] Neck: Normal range of motion, no tenderness, supple, no stridor. [] Cardiovascular:Heart rate regular rhythm, no murmur [] Lungs & Thorax: Bilateral breath sounds clear to auscultation [] Abdomen: Bowel sounds normal, soft, mild epigastric tenderness to palpation, no guarding or rebound tenderness, no masses, no pulsatile masses. [] Skin: Warm, dry, no erythema, no rash. [] Back: No tenderness, no CVA tenderness. [] Extremities: No tenderness, no cyanosis, no clubbing, ROM intact, no edema. [] Neurologic: Alert and oriented X 3, normal motor function, normal sensory function, no focal deficits noted. [] Current Patient Data Vital Signs Vital Signs Date Time Temp Pulse Resp B/P (MAP) Pulse Ox O2 Delivery O2 Flow Rate FiO2 10/02/21 08:53 83 16 163/96 (118) 97 Room Air Lab Results Laboratory Tests Test 10/02/21 09:15 10/02/21 09:50 10/02/21 11:13 White Blood Count 10.5 x10^3/uL Red Blood Count 4.51 x10^6/uL Hemoglobin 14.7 g/dL Hematocrit 43.3 % Mean Corpuscular Volume 96 fL Mean Corpuscular Hemoglobin 33 pg Mean Corpuscular Hemoglobin Concent 34 g/dL Red Cell Distribution Width 13.9 % Platelet Count 212 x10^3/uL Neutrophils (%) (Auto) 62 % Lymphocytes (%) (Auto) 20 % Monocytes (%) (Auto) 9 % Eosinophils (%) (Auto) 8 % Basophils (%) (Auto) 1 % Neutrophils # (Auto) 6.5 x10^3uL Lymphocytes # (Auto) 2.1 x10^3/uL Monocytes # (Auto) 0.9 x10^3/uL Eosinophils # (Auto) 0.9 x10^3/uL Basophils # (Auto) 0.1 x10^3/uL Sodium Level 138 mmol/L Potassium Level 4.1 mmol/L Chloride Level 102 mmol/L Carbon Dioxide Level 27 mmol/L Anion Gap 9 Blood Urea Nitrogen 30 mg/dL Creatinine 1.9 mg/dL Estimated GFR (Cockcroft-Gault) 36.0 BUN/Creatinine Ratio 16 Glucose Level 118 mg/dL Calcium Level 9.4 mg/dL Total Bilirubin 0.5 mg/dL Aspartate Amino Transf (AST/SGOT) 47 U/L Alanine Aminotransferase (ALT/SGPT) 43 U/L Alkaline Phosphatase 99 U/L Troponin I High Sensitivity 8 ng/L 11 ng/L Total Protein 7.0 g/dL Albumin 3.5 g/dL Albumin/Globulin Ratio 1.0 Lipase 150 U/L Urine Collection Type Unknown Urine Color Yellow Urine Clarity Clear Urine pH 6.5 Urine Specific [place] 1.020 Urine Protein 100 mg/dl Urine Glucose (UA) Neg mg/dL Urine Ketones (Stick) Neg mg/dL Urine Blood Neg Urine Nitrite Neg Urine Bilirubin Neg Urine Urobilinogen Dipstick 0.2 mg/dL Urine Leukocyte Esterase Neg Urine RBC 0 /HPF Urine WBC 0 /HPF Urine Bacteria 0 /HPF Current Medications Medications (Trade) Dose Ordered Sig/[place] Route PRN Reason Start Time Stop Time Status Last Admin Dose Admin Multi-Ingredient Mouthwash/Gargle (Gi Cocktail) 20 ml 1X ONCE PO 10/02/21 09:30 10/02/21 09:31 DC 10/02/21 09:35 Sodium Chloride 1,000 ml @ 1,000 mls/hr Q1H IV 10/02/21 09:30 10/02/21 10:29 DC 10/02/21 09:35 Ondansetron HCl (Zofran) 4 mg 1X ONCE IVP 10/02/21 09:30 10/02/21 09:31 DC 10/02/21 09:36 Famotidine (Pepcid Vial) 20 mg 1X ONCE IVP 10/02/21 09:30 10/02/21 09:31 DC 10/02/21 09:37 Dicyclomine HCl (Bentyl) 20 mg 1X ONCE IM 10/02/21 09:30 10/02/21 09:31 DC 10/02/21 09:38 EKG EKG Interpreted by me: Heart rate 77, sinus rhythm, normal intervals, leftward axis, no acute ST/T wave abnormalities present [] Radiology/Procedures Radiology/[place] [address] IMAGING REPORT Signed PATIENT: FLACA GARZA ACCOUNT: [id number] : 1955 LOCATION: ER AGE: 65 SEX: M EXAM STATUS: REG ER ORD. PHYSICIAN: HIREN MALHOTRA MD REASON: epigastric pain PROCEDURE: PORTABLE CHEST 1V XR CHEST 1V 10/02/2021 9:21 AM INDICATION: Epigastric pain COMPARISON: 09/09/2019 TECHNIQUE: Portable frontal view of the chest is provided. FINDINGS: The cardiomediastinal silhouette is within normal limits. Lungs are clear. Calcified granuloma identified at the right lung base. There are no significant pleural effusions. There is no pulmonary vascular congestion. No pneumothorax. No suspicious osseous abnormality. IMPRESSION: There is no acute cardiopulmonary process. Electronically signed by: Lacho Toth MD (10/02/2021 9:36 AM) [id number] DICTATED AND SIGNED BY: LACHO TOTH MD DATE: 10/02/21 0934 CC: HIERN MALHOTRA MD; GAGAN BRENNAN MD ~ [] Heart Score C/O Chest Pain: No Risk Factors: Risk Factors: DM, Current or recent (<one month) smoker, HTN, HLP, family history of CAD, obesity. Risk Scores: Risk Factors: DM, Current or recent (<one month) smoker, HTN, HLP, family history of CAD, obesity. Course & Med Decision Making Course & Med Decision Making Pertinent Labs and Imaging studies reviewed. (See chart for details) Patient was administered GI cocktail, IM dicyclomine, IV Pepcid, and IV Zofran. Patient's blood work was reviewed and notable for increased BUN and creatinine of 30 and 1.9. Was administered IV fluids for treatment. After administration of medications the patient states that his pain has improved. 2 sets of troponins were drawn in the emergency department and both within normal limits with a less than 7 ng/L increase from the 1st-2nd draw. I have very low suspicion that the patient's symptoms are secondary to acute coronary syndrome and there is no evidence of active myocardial ischemia on today's work-up. Suspect GI source for symptoms. Upon further questioning, the patient notes that he has not been taking his Prilosec daily at home over the past week prior to onset of symptoms. I have recommended that patient resume daily use of Prilosec at this time and have prescribed dicyclomine to help with abdominal discomfort. Recommend that patient contact his GI specialist in 2 days regarding today's visit and advised that he keep his EGD as scheduled on October 12, 2021. Also recommend follow-up with primary care provider in the next 3 days for reevaluation and recommend return to the emergency department for any worsening symptoms. Patient voiced understanding and in agreement with treatment plan. [] Dragon Disclaimer Dragon Disclaimer This electronic medical record was generated, in whole or in part, using a voice recognition dictation system. Departure Departure: Impression: Primary Impression: Epigastric abdominal pain Disposition: HOME / SELF CARE / HOMELESS Condition: IMPROVED Referrals: GAGAN BRENNAN MD (PCP) JERRELL PUTNAM MD Patient Instructions: Abdominal Migraine Additional Instructions: Follow-up with your primary doctor in 2 to 3 days for reevaluation. 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 Return to the emergency department for any worsening symptoms. Scripts Dicyclomine Hcl (DICYCLOMINE HCL) 20 Mg Tablet 1 TAB PO QID PRN for ABDOMINAL CRAMPS, #30 TAB Prov: HIREN MALHOTRA MD 10/02/21 HIREN MALHOTRA MD October 02, 2021 09:46
[2021-10-02 09:50] LABS: ALBUMIN 3.5 g/dL (3.4-5.0); TOTAL BILIRUBIN 0.5 mg/dL (0.2-1.0)
--- NOTE | 2021-10-02 10:34 | RAD ---
PQRS Compliance Statement: One or more of the following individualized dose reduction techniques were utilized for this examinat ion: 1. Automated exposure control 2. Adjustment of the mA and/or kV according to patient size 3. Use of iterative reconstruction technique CT abdomen/pelvis without contrast 10/02/2021 9:55 AM INDICATION: Upper abdominal pain COMPARISON: CT abdomen/pelvis 06/28/2016 TECHNIQUE: Multiple axial CT images of the abdomen and pelvis were obtained without intravenous contr ast. Coronal and sagittal reformats are provided. FINDINGS: Bibasilar subsegmental atelectasis. Heart size is within normal limits. 10 mm simple cyst in the infe rior right hepatic lobe. Additional simple cyst identified in the lateral segment left hepatic lobe m easuring 8 mm (series 2, image 28). Spleen, adrenal glands, pancreas and gallbladder are normal in ap pearance. The abdominal aorta is normal in course and caliber. There are no pathologically enlarged lymph nodes in the abdomen and pelvis. There is no abdominal free fluid. There is no free intraperitoneal air. Mild diverticulosis. Small and large bowel are normal in caliber. There is no evidence for bowel obst ruction. There are no pericolonic inflammatory changes. A normal, nondilated appendix is visualized w ithout adjacent inflammatory changes. The kidneys are relatively symmetric in appearance. There is no suspicious renal mass within the limi tations of a noncontrast examination. There is no hydronephrosis. There are no calculi within the kid neys, ureters or urinary bladder. Simple cyst in the superior pole the right kidney measuring 1.3 cm. Urinary bladder is within normal limits given degree of distention. Prostate and seminal vesicles ar e normal in appearance. No suspicious osseous abnormality is identified. IMPRESSION: Mild diverticulosis without adjacent inflammation. No bowel obstruction or inflammation. No evidence for obstructive uropathy. Electronically signed by: Yuli Kang MD (10/02/2021 10:32 AM) [id number]
[2021-10-02 10:36] LABS: CLARITY,URINE CLEAR; COLOR,URINE YELLOW; GLUCOSE,URINE NEG (NEG)
[2021-10-02 10:37] LABS: BACTERIA,URINE 0 /HPF (0-FEW); NITRITE,URINE NEG (NEG); RBC,URINE 0 /HPF (0-2); UROBILINOGEN,URINE 0.2 mg/dL (0.2 mg/dL); WBC,URINE 0 /HPF (0-4)
[2021-10-02 11:00] VITALS: BP 133/67
[2021-10-02] MEDS ORDERED: DICY20TA PO (12:00)
== END 2021-10-02 12:08 | disposition home or self-care (01) ==
LOC: ER 08:53
DX: R10.13 Epigastric pain (principal); I10 Essential (primary) hypertension
CPT/HCPCS: 36415; 71045; 74176; 80053; 81001; 83690; 84484; 85025; 93005; 96361; 96372; 96374; 96375; 99285; J0500; J2405; J3490; J7030